=== PATIENT | male | born 1975 | race Caucasian/White ===

== ENCOUNTER 2016-10-06 09:16 | Emergency (ER) | payer OTHER ==
[2016-10-06 09:34] VITALS: BP 142/97; PULSE 67; RESP 18; TEMP 97.7; O2SAT 97
[2016-10-06 09:51] LABS: COLOR YELLOW; LEUKOCYTE ESTERASE,URINE NEGATIVE (NEGATIVE); NITRITE,URINE NEGATIVE (NEGATIVE); PH,URINE 5.5 (5.0-7.5)
[2016-10-06] MEDS ORDERED: KETOROLAC 30 MG/1 ML SDV IVP ONE (10:03)
[2016-10-06] MEDS ORDERED: NS 1,000 ML IV ONE (10:03)
[2016-10-06 10:12] LABS: AMORPHOUS 2+ /hpf (NONE-1+); BACTERIA 1+ /hpf (NONE SEEN); MUCUS 3+ /lpf (NONE-1+); WBC,URINE 0-1 /hpf (0-3)
--- NOTE | 2016-10-06 10:43 | UCPHY ---
H & P Time Seen by Provider: 10/06/16 09:56 Patient Type: New HPI/ROS: This patient has left flank pain that was severe at home this morning 7/10 intensity radiating down to the left lower belly. The symptoms have improved but persistent about 2/10 out of intensity. He has not taken any medications prior to. Arrival. He reports having 1 similar episode in the past that resolved after 2 hours and was associated with nausea. ROS: No fevers or chills. No dysuria. Does report darker urine this morning than usual. No testicular pain or swelling. 7 point ROS is otherwise negative Past Medical/Surgical History: Otherwise healthy. Smoking Status: Former smoker Physical Exam: General Appearance: Alert, no distress. Eyes: Pupils equal and round no pallor or injection. ENT, Mouth: Mucous membranes moist. Respiratory: There are no retractions, lungs are clear to auscultation. Cardiovascular: Regular rate and rhythm. Gastrointestinal: Abdomen is soft and nontender, no masses, bowel sounds normal. Back: Mild left CVA tenderness : No testicular swelling or tenderness. Neurological: Alert with no focal deficits. Skin: Warm and dry, no rashes. Musculoskeletal: Neck is supple nontender. Extremities are symmetrical, full range of motion. Psychiatric: Mood and affect normal DIFFERENTIAL DIAGNOSIS: After history and physical exam differential diagnosis was considered for ureteral stone, pyelonephritis, diverticulitis Constitutional: Initial Vital Signs Temperature (C) 36.5 C 10/06/16 09:32 Heart Rate 67 10/06/16 09:32 Respiratory Rate 18 10/06/16 09:32 Blood Pressure 142/97 H 10/06/16 09:32 O2 Sat (%) 97 10/06/16 09:32 O2 Delivery Mode Room Air Allergies/Adverse Reactions: No Known Allergies Allergy (Unverified 10/06/16 10:43) Home Medications: Medication Instructions Recorded Bystolic 10/06/16 Hydrocodone/APAP 5/325 [Newton 1 - 2 tab PO Q4PRN PRN #15 tab 10/06/16 5/325 (*)] Lisinopril 10/06/16 MDM/Departure - MDM Diagnostics: CT abdomen pelvis without contrast reveals a distal left 2 mm ureteral stone adjacent to the bladder with mild hydronephrosis per radiologist. Medications Given: Discontinued Medications Sodium Chloride (Ns) 1,000 mls @ 0 mls/hr IV ONCE ONE PRN Reason: Wide Open Stop: 10/06/16 10:04 Last Admin: 10/06/16 10:31 Dose: 1,000 mls Ketorolac Tromethamine (Toradol) 15 mg IVP EDNOW ONE Stop: 10/06/16 10:04 Last Admin: 10/06/16 10:40 Dose: 15 mg ED Course/Re-evaluation: IV Toradol and normal saline bolus with relief. Counseled patient regarding ureteral stone. Given the small size of the stone I think the past without difficulty. - Depart Disposition: Home, Routine, Self-Care Clinical Impression: Ureteral stone with hydronephrosis Condition: Good Instructions: Ureteral Stones (ED) Additional Instructions: Diagnosis left ureteral stone Plan: Drink plenty fluids Ibuprofen-600 mg per 6 hours as needed for pain Tylenol or Vicodin in addition if needed. Return for any significant worsening despite the treatment plan Filter your urine to document passage of the stone. Good the emergency department for any significant worsening of her symptoms despite the treatment plan. Prescriptions: Hydrocodone/APAP 5/325 [[place] 5/325 (*)] 1 - 2 tab PO Q4PRN PRN #15 tab PRN Reason: Pain Referrals: Aly Edgar DO [Primary Care Provider] - As per Instructions - PQRS PQRS Measurement: NA
== END 2016-10-06 11:21 | disposition home or self-care (01) ==
LOC: CED 09:16
DX: N20.1 Calculus of ureter (principal); N13.30 Unspecified hydronephrosis
CPT/HCPCS: 74176-PO; 81003-PO; 81015-PO; 96361-PO; 96374-PO; 99203-PO; G0463-PO; J1885